=== PATIENT | female | born 1995 | race African-American/Black ===

== ENCOUNTER 2022-11-27 05:56 | Inpatient (IN) | payer OTHER ==
[~2022-11-27] VITALS: Ht 165.1 cm; Wt 78.6 kg
[2022-11-27] VITALS (27 sets, daily range): BP systolic 90–138; BP diastolic 50–80; PULSE 58–96; TEMP 97.5–98.3
[~2022-11-27 05:56] MED LIST: COLACE 100100 MG/CAP PO; NATURAL IRON65 MG PO; PRENATAL TABLET PO; TYLENOL 500MG500 MG PO
--- NOTE | 2022-11-27 06:00 | NUR ---
0600 - PATIENT AMBULATORY TO LDR4 ACCOMPANIED BY GRANDMOTHER. PATIENT ORIENTED TO ROOM. PATIENT CHANGES INTO GOWN. 0620 - PLAN OF CARE DISCUSSED. QUESTIONS ANSWERED. PATIENT DENIES LEAKING OF FLUID, CONTRACTIONS OR BLOODY SHOW. PATIENT REPORTS GOOD MOVEMENT. 0630 - PATIENT ON MONITOR. CONSENTS REVIEWED AND SIGNED. 0700 - IV PLACED, LABS DRAWN ORDERED. LR INITIATED ORDERED. 0705 - SVE PERFORMED BY THIS RN. -/-2. VERTEX. PERICARE PERFORMED. PATIENT REPOSITIONED. CARE ONGOING.
[2022-11-27 07:29] LABS: BASO % 0.3 % (0.0-2.0); EOS # 0.1 K/mm3 (0.0-0.7); EOS % 0.6 % (0.0-4.0); GRAN # 8.1 K/mm3 (1.4-6.5); GRAN % 68.4 % (42.2-75.2); LYMPH # 2.5 K/mm3 (1.2-3.4); LYMPH % 20.9 % (20.0-51.0); MEAN CELL VOLUME 76 fl (80.0-100.0); MEAN CORPUSCULAR HGB CONC 30 g/dl (33.0-37.0); MONO # 1.1 K/mm3 (0.1-0.6); PLATELET COUNT 302 K/mm3 (130-400); RED BLOOD COUNT 3.53 M/mm3 (4.10-5.30); REDCELL DISTRIBUTION WIDTH-CV 15.7 % (11.5-14.5)
[2022-11-27 07:31] LABS: HEMATOCRIT 26.8 % (37.0-47.0); HEMOGLOBIN 8.1 g/dl (12.5-16.0); MEAN CORPUSCULAR HEMOGLOBIN 23 pg (27-31)
--- NOTE | 2022-11-27 08:10 | NUR ---
0810 - MD LEANDRO AT BEDSIDE. PLAN OF CARE DISCUSSED AND PATIENT AGREEABLE TO PLAN. 0814 - SVE PERFORMED BY . -/2. AROM PERFORMED BY . CLEAR FLUID NOTED. PERICARE PERFORMED. PATIENT REPOSITIONED. CARE ONGOING.
--- NOTE | 2022-11-27 08:41 | NUR ---
0841 - PATIENT REQUESTS EPIDURAL. SYDNEY SAENZ NOTIFIED FOR ANESTHESIA OF PATIENT REQUESTING EPIDURAL. LR BOLUS INITIATED. PATIENT POSITIONED SITTING EDGE OF BED. 0849 - SYDNEY SAENZ AT BEDSIDE. TIMEOUT PERFORMED. 0856 - SINGLE SHOT PER PERSONAL LINES INSURANCE AGENT. 0900 - PATIENT REPOSITIONED LEFT LATERAL. CARE ONGOING.
--- NOTE | 2022-11-27 11:05 | NUR ---
1105 - SVE PERFORMED BY THIS RN. PATIENT COMPLETE. AKHIL CARE PERFORMED PATIENT REPOSITIONED. 1107 - MD LEANDRO CALLED AND MD'S NURSE ANSWERS. NOTIFIED VIA PHONE OF ABOVE EXAM AND REQUESTED TO BEDSIDE. CARE ONGOING.
--- NOTE | 2022-11-27 11:20 | NUR ---
1120 - MD LEANDRO AT BEDSIDE. PATIENT INSTRUCTED ON PUSHING. NURSERY RN AT BEDSIDE. 1125 - PINEDA D/C. 1130 - PATIENT BEGINS PUSHING WITH CONTRACTIONS. GOOD MATERNAL EFFORT. 1145 - PATIENT CONTINUES PUSHING WITH CONTRACTIONS. 1151 - PATIENT CONTINUES PUSHING WITH CONTRACTIONS. SPONTANEOUS VAGINAL DELIVERY OF INFANT. PLACED ON PATIENT'S CHEST, DRIED AND STIMULATED BY THIS RN AND NURSERY RN. ZULLY MCLEAN RN ASSUMES CARE OF . 1153 - SPONTANEOUS DELIVERY OF INTACT PLACENTA. 1157 - FUNDAL CHECK PERFORMED BY RN. FUNDUS BOGGY. FUNDAL MASSAGE PERFORMED. 1159 - METHERGINE GIVEN ORDERED - SEE DEC. 1199 - FUNDAL MASSAGE PERFORMED. FUNDUS FIRM. PERICARE PERFORMED. BED PAD CHANGED. ICE PACK PAD APPLIED. WILL CONTINUE TO MONITOR.
[2022-11-27] MEDS ORDERED: MOTRIN 800800 MG/TAB PO (14:29)
--- NOTE | 2022-11-27 16:00 | NUR ---
1600 - PATIENT AMBULATORY TO BATHROOM. PATIENT VOIDS. PERICARE PERFORMED. CLEAN GOWN AND UNDERWEAR ON. PATIENT AMBULATES TO ROOM 207 INDEPENDENTLY. PATIENT ORIENTED TO ROOM. CARE ONGOING.
[2022-11-27 17:02] LABS: HEMATOCRIT 28.1 % (37.0-47.0); HEMOGLOBIN 8.5 g/dl (12.5-16.0)
[2022-11-28 05:19] LABS: HEMATOCRIT 23.7 % (37.0-47.0)
[2022-11-28 07:30] VITALS: BP 114/69; PULSE 74; TEMP 97.8
== END 2022-11-28 12:37 | disposition home or self-care (01) | DRG 806 ==
LOC: LDR 05:56 → OB 16:01
PROVIDERS: ADMIT Obstetrics & Gynecology
PROC: 10E0XZZ Delivery of Products of Conception, External Approach (ICD-10-PCS; principal; 2022-11-27)
PROC: 0KQM0ZZ Repair Perineum Muscle, Open Approach (ICD-10-PCS; 2022-11-27)
PROC: 3E033VJ Introduction of Other Hormone into Peripheral Vein, Percutaneous Approach (ICD-10-PCS; 2022-11-27)
PROC: 10907ZC Drainage of Amniotic Fluid, Therapeutic from Products of Conception, Via Natural or Artificial Opening (ICD-10-PCS; 2022-11-27)
DX: O99.02 Anemia complicating childbirth (principal); O72.1 Other immediate postpartum hemorrhage; Z37.0 Single live birth; D64.9 Anemia, unspecified; Z3A.39 39 weeks gestation of pregnancy; Z87.820 Personal history of traumatic brain injury; Z86.16 Personal history of COVID-19; Z23 Encounter for immunization
CPT/HCPCS: J2210; J2590; J7120